=== PATIENT | female | born 1965 | race Caucasian/White ===

== ENCOUNTER 2024-05-07 09:23 | Outpatient (CLI) | payer OTHER, SELFPAY | END 2024-05-07 09:24 | disposition home or self-care (01) | PROVIDERS: PCP Physician Assistant Medical; Visit Provider Physician Assistant Medical | DX: G43.909 Migraine, unspecified, not intractable, without status migrainosus (principal); Z13.228 Encounter for screening for other metabolic disorders; Z13.220 Encounter for screening for lipoid disorders; Z13.29 Encounter for screening for other suspected endocrine disorder | CPT/HCPCS: 80053; 80061; 84443 ==

== ENCOUNTER 2024-05-29 09:58 | Outpatient (CLI) | payer OTHER, SELFPAY ==
--- NOTE | 2024-05-29 10:15 | MR_ITS ---
[facility] [address] [facility] [address] Phone:?[phone] Fax:?[phone] Referring Physician Information: Carlos Mcintosh M.D. [id number] [facility] [address] Phone:?[phone] Fax:?[phone] Patient:?Aspen Contreras D.O.B:?1965 Sex:?Female Phone:?[phone] [facility] MRN:?[id number] Exam Date:?05/29/2024 EXAM: MRI EXAMINATION OF THE RIGHT KNEE CLINICAL INFORMATION: Right knee pain. No history of surgery to this area. Evaluate for meniscal tear. TECHNICAL INFORMATION: Coronal PD and STIR. Axial PD and T2 fat saturation. Sagittal PD and PD fat saturation images acquired. No prior studies for comparison. INTERPRETATION: Bones: Mild marrow edema signal and cystic change within the tibial eminence. Localized subchondral cystic change involves the patella. No occult fracture or AVN. No other bone marrow edema pattern. Ligaments and tendons: The medial collateral ligament is intact, without acute sprain or tear. The iliotibial band, fibular collateral ligament, biceps femoris tendon and popliteus tendon all are intact. The anterior cruciate ligament is intact without acute sprain or tear. The posterior cruciate ligament is intact. Extensor Mechanism: The patellar and quadriceps tendons are intact. The medial and lateral retinacula are intact. Knee Joint: There is a moderate knee joint effusion. There is a moderate-sized popliteal cyst. There is no discrete loose body seen within the joint. Medial Compartment: Subtle horizontal signal within the medial meniscus extends as undersurface tear of the posterior body and just into the posterior horn as well. No displaced flap fragment or parameniscal cyst. There is no focal chondral defect. No other significant changes of chondromalacia. Lateral Compartment: There is horizontal superior surface tearing through the body of the lateral meniscus as well as continuing just into the anterior horn. No displaced flap fragment or parameniscal cyst. There is a 9 mm segment of grade II to III chondromalacia posterior to the mid surface of the lateral tibial plateau. No other significant changes of chondromalacia. Patellofemoral articulation: There is a 1.5 x 1 cm segment of grade 3 to IV chondromalacia involving the inferior two thirds of the lateral patellar facet. No other significant chondromalacia. CONCLUSION: 1. Horizontal tearing through the body of the lateral meniscus and just into the anterior horn. 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 2. There is a subtle appearance of horizontal signal within the medial meniscus which extends as undersurface tear involving the posterior body and just into the posterior horn. 3. The cruciate ligaments are intact. No other residua of a ligament injury involving the knee. 4. 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 5. Moderate knee joint effusion and popliteal cyst. [facility]ES Electronically signed on 05/29/2024 11:53:00 AM by Memo Fowler M.D.
== END 2024-05-29 09:59 | disposition home or self-care (01) ==
LOC: MRI 09:58
PROVIDERS: PCP Physician Assistant Medical; Visit Provider Orthopaedic Surgery
DX: M25.561 Pain in right knee (principal); S83.281A Other tear of lateral meniscus, current injury, right knee, initial encounter; M22.41 Chondromalacia patellae, right knee; M25.461 Effusion, right knee; S89.91XA Unspecified injury of right lower leg, initial encounter
CPT/HCPCS: 73721